=== PATIENT | male | born 1985 | race Caucasian/White ===

== ENCOUNTER 2017-07-22 20:32 | Emergency (ER) | payer OTHER ==
[2017-07-22 20:58] VITALS: BP 129/72
[2017-07-22] MEDS ORDERED: Cephalexin CAP* 500 MG PO ONE (21:16)
--- NOTE | 2017-07-22 21:20 | UC ---
Throat Pain/Nasal [place] HPI - HPI Summary HPI Summary: 32 yo male with the onset of swollen gland right lat neck today hurts to swallow no sore throat no ear ache skin over the swollen nodes is markedly tender no rash no fever hx neck surgery for herniated disc - History of Current Complaint Chief Complaint: UCEar Stated Complaint: PAIN/SWELLING RT SIDE NECK TO EAR Time Seen by Provider: 07/22/17 20:59 Hx Obtained From: Patient Onset/Duration: Gradual Onset, Lasting Hours Pain Intensity: 10 Pain Scale Used: 0-10 Numeric Associated Signs & Symptoms: Positive: Negative - Epiglottits Risk Factors Epiglottis Risk Factors: Negative - Allergies/Home Medications Allergies/Adverse Reactions: Allergies Allergy/AdvReac Type Severity Reaction Status Date / Time cortisone Allergy Rash Verified 07/22/17 20:48 Home Medications: Home Medications Ibuprofen TAB* [Advil TAB*] 400 mg PO Q6H PRN 07/22/17 [History Confirmed ] PMH/Surg Hx/FS Hx/Imm Hx Previously Healthy: Yes Cardiovascular History: Hypertension - Surgical History Surgical History: Yes Surgery Procedure, Year, and Place: RT LEG SURGERY AND LT LEG SURGERY FROM [facility], 2 HERNIA SURGERYS, RT AND LT SHOULDER REPAIR,. TITANIUM SX NECK-- 03/2017. LOW BACK SX--11/2016 - Family History Known Family History: Positive: Hypertension - Social History Alcohol Use: Occasionally Substance Use Type: None Smoking Status (MU): Heavy Every Day Tobacco Smoker Type: Cigarettes Amount Used/How Often: 1/2 ppd Length of Time of Smoking/Using Tobacco: 8 years old Household Exposure Type: Cigarettes - Immunization History Most Recent Tetanus Shot: 4 or more years Review of Systems Constitutional: Negative Skin: Negative Eyes: Negative ENT: Negative Respiratory: Negative Cardiovascular: Negative Gastrointestinal: Negative Genitourinary: Negative Motor: Negative Neurovascular: Negative Musculoskeletal: Negative Neurological: Negative Psychological: Negative Is Patient Immunocompromised?: No All Other Systems Reviewed And Are Negative: Yes Physical Exam Triage Information Reviewed: Yes Appearance: Well-Appearing, No Pain Distress, Well-Nourished Vital Signs: Initial Vital Signs Temp 98 F 07/22/17 20:49 Pulse 68 07/22/17 20:49 Resp 18 07/22/17 20:49 BP 129/72 07/22/17 20:49 Pulse Ox 97 07/22/17 20:49 Vital Signs Reviewed: Yes Eyes: Positive: Conjunctiva Clear ENT: Positive: Hearing grossly normal, Pharynx normal, TMs normal, Uvula midline. Negative: Nasal congestion, Nasal drainage, Tonsillar swelling, Tonsillar exudate, Trismus, Muffled voice, Hoarse voice, Sinus tenderness Neck: Positive: Supple, Tenderness @ - right ant cervical nodes, Enlarged Nodes @ - right ant cervical Respiratory: Positive: Lungs clear, Normal breath sounds, No respiratory distress, No accessory muscle use Cardiovascular: Positive: RRR, No Murmur Musculoskeletal: Positive: ROM Intact, No Edema Neurological: Positive: Alert Psychological Exam: Normal Skin Exam: Normal Throat Pain/Nasal Course/Dx - Differential Dx/Diagnosis Provider Diagnoses: cervical adenopathy Discharge - Discharge Plan Condition: Stable Disposition: HOME Prescriptions: Cephalexin CAP* [Keflex CAP*] 500 mg PO QID #28 cap Patient Education Materials: Lymphadenopathy (ED) Referrals: Юлия Maldonado MD [Primary Care Provider] - 5 Days Additional Instructions: heating pain recheck for new or worsening symptoms' recheck if you notice a neck rash
== END 2017-07-22 21:25 | disposition home or self-care (01) ==
LOC: UCCORT 20:32
DX: R59.9 Enlarged lymph nodes, unspecified (principal); F17.210 Nicotine dependence, cigarettes, uncomplicated; I10 Essential (primary) hypertension
CPT/HCPCS: 99212; A9270-GY; G0463

== ENCOUNTER 2017-11-19 13:54 | Emergency (ER) | payer OTHER ==
[2017-11-19 14:18] VITALS: BP 135/81
--- NOTE | 2017-11-19 14:27 | UC ---
UC General HPI - HPI Summary HPI Summary: Pt presents with c/o of right neck tender "lump". Pt reports that he had his tongue pierced on 11/14/17. Pt denies fever, chills, worsenign swelling, nubmness or drainage. - History of Current Complaint Chief Complaint: UCGeneralIllness Stated Complaint: SWOLLEN GLANDS Time Seen by Provider: 11/19/17 14:05 Hx Obtained From: Patient Onset/Duration: Gradual Onset, Lasting Days, Still Present Timing: Constant Onset Severity: Mild Current Severity: Mild Pain Intensity: 6 Associated Signs & Symptoms: Positive: Trauma - Allergy/Home Medications Allergies/Adverse Reactions: Allergies Allergy/AdvReac Type Severity Reaction Status Date / Time No Known Allergies Allergy Verified 11/19/17 14:08 Home Medications: Home Medications Desvenlafaxine Succinate [Pristiq] 50 mg PO DAILY 11/19/17 [History Confirmed ] Lisinopril [Zestril 40 MG-] 40 mg PO DAILY 11/19/17 [History Confirmed 11/19/17] Pantoprazole Sodium 40 mg PO DAILY 11/19/17 [History Confirmed 11/19/17] Simvastatin [Zocor] 40 mg PO DAILY 11/19/17 [History Confirmed 11/19/17] PMH/Surg Hx/FS Hx/Imm Hx Previously Healthy: Yes - Surgical History Surgical History: Yes Surgery Procedure, Year, and Place: RT LEG SURGERY AND LT LEG SURGERY FROM [facility], 2 HERNIA SURGERYS, RT AND LT SHOULDER REPAIR,. TITANIUM SX NECK-- 03/2017. LOW BACK SX--11/2016. SHOULDER SURGERY - Family History Known Family History: Positive: Hypertension - Social History Occupation: Employed Full-time Lives: With Family Alcohol Use: Occasionally Substance Use Type: None Smoking Status (MU): Light Every Day Tobacco Smoker Type: Cigarettes Amount Used/How Often: 2 CIGS PER DAY Length of Time of Smoking/Using Tobacco: 8 years old Have You Smoked in the Last Year: Yes Household Exposure Type: Cigarettes - Immunization History Most Recent Tetanus Shot: 4 or more years Review of Systems Constitutional: Negative Skin: Negative Eyes: Negative ENT: Other - recent tongue piercing Respiratory: Negative Cardiovascular: Negative Gastrointestinal: Negative Genitourinary: Negative Motor: Negative Neurovascular: Negative Musculoskeletal: Negative Neurological: Negative Psychological: Negative Is Patient Immunocompromised?: No All Other Systems Reviewed And Are Negative: Yes Physical Exam Triage Information Reviewed: Yes Appearance: Well-Appearing Vital Signs: Initial Vital Signs Temp 98.6 F 11/19/17 14:12 Pulse 93 11/19/17 14:12 Resp 18 11/19/17 14:12 BP 135/81 11/19/17 14:12 Pulse Ox 98 11/19/17 14:12 Vital Signs Reviewed: Yes Eye Exam: Normal ENT Exam: Other ENT: Positive: Other - tongue piercing, Dental Exam: Normal Neck: Positive: Enlarged Nodes @ - right submandibular, c/o tenderness with palpation Respiratory Exam: Normal Respiratory: Positive: No respiratory distress Musculoskeletal Exam: Normal Neurological Exam: Normal Psychological Exam: Normal Course/Dx - Differential Dx - Multi-Symptom Differential Diagnoses: Other Provider Diagnoses: lymphadenopathy Discharge - Sign-Out/Discharge Documenting (check all that apply): Patient Departure - Discharge Plan Condition: Stable Disposition: HOME Prescriptions: Clindamycin Cap(NF) [Clindamycin Cap 300 mg Cap(NF)] 300 mg PO Q8H #21 cap Patient Education Materials: Lymphadenopathy (ED), Adenitis (ED) Referrals: Юлия Maldonado MD [Primary Care Provider] - If Needed - Billing Disposition and Condition Condition: STABLE Disposition: Home
== END 2017-11-19 14:39 | disposition home or self-care (01) ==
LOC: UCCORT 13:54
DX: R59.1 Generalized enlarged lymph nodes (principal); F17.210 Nicotine dependence, cigarettes, uncomplicated
CPT/HCPCS: 99212; G0463

== ENCOUNTER 2019-03-19 15:24 | Emergency (ER) | payer MEDICARE, OTHER ==
--- OUTSIDE RECORDS SUMMARY | 2019-03-19 15:33 | XMS REPORT | Continuity of Care Document ---
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 Medicine Problems Active Problems Provider Date Lumbar radiculopathy Kaz Velazquez MD Onset: 08/09/2017 Displacement of lumbar intervertebral disc Kaz Velazquez MD Onset: 2017 without myelopathy Arthropathy of spinal facet joint Kaz Velazquez MD Onset: 08/09/2017 Spinal stenosis in cervical region Kaz Velazquez MD Onset: 08/09/2017 Postlaminectomy syndrome, not elsewhere Kaz Velazquez MD Onset: 08/09/2017 classified Sacrococcygeal disorders, not elsewhere Kaz Velazquez MD Onset: 08/09/2017 classified Radiculopathy, cervical region Kaz Velazquez MD Onset: 11/05/2017 Lumbar spondylosis Kaz Velazquez MD Onset: 06/04/2018 Chronic pain Kaz Velazquez MD Onset: 07/26/2018 Social History Type Date Description Comments Sex Unknown ETOH Use Denies alcohol use Recreational Drug Use 06/04/2018 Denies Drug Use Tobacco Use Start: Unknown End: Patient is a former Smoked 1/2 ppd for Unknown smoker 20 years Quit 2018 Smoking Status Reviewed: 02/28/19 Patient is a former Smoked 1/2 ppd for smoker 20 years Quit 2018 Allergies, Adverse Reactions, Alerts Active Allergies Reaction Severity Comments Date NKDA 12/27/2017 Inactive Allergies Cortisone 08/09/2017 Medications Active Medications SIG Qnty Indications Ordering Provider Date Simvastatin 1 by mouth Unknown 20mg every day Tablets Pantoprazole Sodium 1 by mouth Unknown every day 20mg Tablets DR Mcgraw Potassium 1 tab qd Janes Donnelly 50mg [place], Tablets Immunizations Description No Information Available Vital Signs Date Vital Result Comment 02/28/2019 10:05am Height 72 inches 6'0" Weight 212.00 lb BMI (Body Mass Index) 28.7 kg/m2 BP Systolic 138 mmHg BP Diastolic 97 mmHg Heart Rate 89 /min 11/22/2018 9:14am Height 72 inches 6'0" Weight 216.00 lb BMI (Body Mass Index) 29.3 kg/m2 BP Systolic 139 mmHg BP Diastolic 92 mmHg Heart Rate 71 /min Results Description No Information Available Procedures Description No Information Available Medical Devices Description No Information Available Encounters Type Date Location Provider Dx Diagnosis Office Visit 11/22/2018 [facility] Neurosurgery - Jean-Claude Lynne MD M54.2 Cervicalgia 9:20a [facility] Office Visit 09/27/2018 [facility] Interventional Kaz Frazier M54.16 Radiculopathy, 2:15p Spine / Pain Temi Velazquez MD lumbar region M96.1 Postlaminectomy syndrome, not elsewhere classified M47.816 Spondylosis w/o myelopathy or radiculopathy, lumbar region G89.29 Other chronic pain Office Visit 09/27/2018 [facility] Neurosurgery - Jean-Claude Lynne, M54.16 Radiculopathy, 3:40p Connie PANCHAL lumbar region M96.1 Postlaminectomy syndrome, not elsewhere classified Z87.891 Personal history of nicotine dependence Assessments Date Code Description Provider 02/28/2019 M54.2 Cervicalgia Jean-Claude Lynne MD 02/28/2019 G89.29 Other chronic pain Jean-Claude Lynne MD 02/28/2019 Z87.891 Personal history of nicotine dependence Jean-Claude Lynne MD 02/28/2019 M47.816 Spondylosis without myelopathy or Jean-Claude Lynne MD radiculopathy, lumbar bunny 02/28/2019 M96.1 Postlaminectomy syndrome, not elsewhere Jean-Claude Lynne MD classified 11/22/2018 M54.2 Cervicalgia Jean-Claude Lynne MD 09/27/2018 M54.16 Radiculopathy, lumbar region Kaz Velazquez MD 09/27/2018 M54.16 Radiculopathy, lumbar region Jean-Claude Lynne MD 09/27/2018 M96.1 Postlaminectomy syndrome, not elsewhere Kaz Velazquez MD classified 09/27/2018 M96.1 Postlaminectomy syndrome, not elsewhere Jean-Claude Lynne MD classified 09/27/2018 M47.816 Spondylosis without myelopathy or Kaz Velazquez MD radiculopathy, lumbar bunny 09/27/2018 G89.29 Other chronic pain Kaz Velazquez MD 09/27/2018 Z87.891 Personal history of nicotine dependence Jean-Claude Lynne MD Plan of Treatment Future Appointment(s):04/11/2019 10:00 am - Jean-Claude Lynne MD at [facility] Neurosurgery [facility]02/28/2019 - Jean-Claude Lynne, MDM54.2 LyxurkmnbrtN79.29 Other chronic painZ87.891 Personal history of nicotine jetiuurbveF47.816 Spondylosis without myelopathy or radiculopathy, lumbar regiM96.1 Postlaminectomy syndrome, not elsewhere classified Functional Status Description No Information Available Mental Status Description No Information Available Referrals Refer to Reason for Referral Status Appt Date Vishnu Hernandez Please evaluate for spinal cord stimulator Created / 0000 appropriateness. [address] [place] [address] [phone]
[2019-03-19 15:39] VITALS: BP 131/80
--- NOTE | 2019-03-19 16:02 | UC ---
Respiratory Complaint HPI - HPI Summary HPI Summary: ONSET YESTERDAY OF COUGH, POSTNASAL DRAINAGE AND SINUS CONGESTION. NO FEVER, SORE THROAT OR EAR PAIN. NO NAUSEA/VOMITING. HAD SOME CHILLS THIS MORNING. UP -TO-DATE FLU SHOT. - History of Current Complaint Chief Complaint: UCGeneralIllness Stated Complaint: SINUS COMPLAINT Time Seen by Provider: 03/19/19 15:37 Hx Obtained From: Patient Onset/Duration: Gradual Onset, Lasting Days - 1 DAY, Still Present Timing: Constant Severity Initially: Moderate Severity Currently: Moderate Pain Intensity: 0 Pain Scale Used: 0-10 Numeric Character: Cough: Productive Aggravating Factors: Nothing Alleviating Factors: Nothing Associated Signs And Symptoms: Positive: Chills, URI, Nasal Congestion, Sinus Discomfort. Negative: Dyspnea, Fever - Allergies/Home Medications Allergies/Adverse Reactions: Allergies Allergy/AdvReac Type Severity Reaction Status Date / Time No Known Allergies Allergy Verified 03/19/19 15:34 Home Medications: Home Medications Ibuprofen 1 tab PO ONCE 03/19/19 [History Confirmed 03/19/19] Losartan Potassium [Cozaar] 1 tab PO DAILY 03/19/19 [History Confirmed 03/19/19] PMH/Surg Hx/FS Hx/Imm Hx Cardiovascular History: Hypertension - Surgical History Surgical History: Yes Surgery Procedure, Year, and Place: RT LEG SURGERY AND LT LEG SURGERY FROM [facility]. 2 HERNIA SURGERYS. RT AND LT SHOULDER REPAIR,. TITANIUM SX NECK --03/2017. LOW BACK SX--11/2016. SHOULDER SURGERY - Family History Known Family History: Positive: Hypertension - Social History Alcohol Use: None Substance Use Type: None Smoking Status (MU): Light Every Day Tobacco Smoker Type: Cigarettes Amount Used/How Often: 1-2 CIGS PER DAY Length of Time of Smoking/Using Tobacco: 8 years old Have You Smoked in the Last Year: Yes Household Exposure Type: Cigarettes - Immunization History Most Recent Tetanus Shot: 4 or more years Review of Systems All Other Systems Reviewed And Are Negative: Yes Constitutional: Positive: Chills, Fatigue ENT: Positive: Nasal Discharge, Sinus Congestion Respiratory: Positive: Cough Cardiovascular: Positive: Negative Gastrointestinal: Positive: Negative Physical Exam Triage Information Reviewed: Yes Appearance: Well-Appearing, No Pain Distress, Well-Nourished Vital Signs: Initial Vital Signs Temp 99.5 F 11/13/19 15:35 Pulse 114 03/19/19 15:35 Resp 16 03/19/19 15:35 BP 131/80 03/19/19 15:35 Pulse Ox 97 03/19/19 15:35 Laboratory Tests 03/19/19 15:55 Influenza A (Rapid) Negative Influenza B (Rapid) Negative Vital Signs Reviewed: Yes Eyes: Positive: Conjunctiva Clear ENT: Positive: Hearing grossly normal, Pharynx normal, TMs normal Neck: Positive: Supple, Nontender, No Lymphadenopathy Respiratory Exam: Normal Cardiovascular: Positive: Brisk Capillary Refill Abdomen Description: Positive: Soft Musculoskeletal: Positive: No Edema Neurological: Positive: Alert Psychological: Positive: Age Appropriate Behavior Skin: Negative: Rashes Respiratory Course/Dx - Differential Dx/Diagnosis Provider Diagnosis: Upper respiratory infection Discharge ED - Sign-Out/Discharge Documenting (check all that apply): Patient Departure All imaging exams completed and their final reports reviewed: No Studies - Discharge Plan Condition: Stable Disposition: HOME Patient Education Materials: Upper Respiratory Infection (ED) Referrals: [facility] [Outside] - If Needed Additional Instructions: FLU NEGATIVE. YOUR SYMPTOMS ARE LIKELY VIRALLY MEDIATED AND SHOULD RESOLVE ON THEIR OWN WITH TIME. NO INDICATION FOR ANTIBIOTICS AT PRESENT. REST, HYDRATE, OTC MEDS NEEDED. SEEK FOLLOW-UP IF YOU ARE NOT IMPROVING OVER THE NEXT 1-2 WEEKS. USE OTC AFRIN FOR NASAL CONGESTION. 2 SPRAYS IN EACH NOSTRIL TWICE DAILY NEEDED. DO NOT USE FOR MORE THAN 3-4 DAYS IN A ROW TO PREVENT DEVELOPING REBOUND CONGESTION. - Billing Disposition and Condition Condition: STABLE Disposition: Home
[2019-03-19 16:07] LABS: Influenza A Molecular NEGATIVE (Negative); Influenza B Molecular NEGATIVE (Negative)
== END 2019-03-19 16:11 | disposition home or self-care (01) ==
LOC: UCCORT 15:24
DX: J06.9 Acute upper respiratory infection, unspecified (principal); I10 Essential (primary) hypertension; R53.83 Other fatigue; F17.210 Nicotine dependence, cigarettes, uncomplicated; Z79.899 Other long term (current) drug therapy
CPT/HCPCS: 99211; G0463